=== PATIENT | male | born 1955 ===

== ENCOUNTER 2021-04-11 05:20 | Day surgery (SDC) | payer OTHER ==
[~2021-04-11 05:20] MED LIST: COZAAR50 MG PO; TOPROL XL50 M1 PO
[2021-04-11] MEDS ORDERED: ULTRACET PO (10:32)
[2021-04-11] MEDS ORDERED: AMOX1TAB5 PO (10:32)
[2021-04-11] MEDS ORDERED: PROTONIX40 MG PO (10:32)
== END 2021-04-11 15:32 | disposition home or self-care (01) ==
LOC: CIR.AMB 05:20
PROVIDERS: ATTEND Surgery
DX: K80.10 Calculus of gallbladder with chronic cholecystitis without obstruction (principal); K82.8 Other specified diseases of gallbladder